=== PATIENT | female | born 1985 | race Caucasian/White ===

== ENCOUNTER 2025-03-04 18:16 | Emergency (ER) | payer MEDICAID ==
[~2025-03-04] VITALS: Ht 172.7 cm; Wt 63.5 kg
[2025-03-04 19:17] LABS: BASOPHILS % (AUTO) 0.3 % (0.0-2.0); EOSINOPHILS # (AUTO) 0.5 K/uL (0.0-0.7); EOSINOPHILS % (AUTO) 4.7 % (0.0-7.0); HEMATOCRIT 34.5 % (31.2-41.9); HEMOGLOBIN 11.9 g/dL (10.9-14.3); LYMPHOCYTES # (AUTO) 2.5 K/uL (0.8-4.8); LYMPHOCYTES % (AUTO) 26.6 % (20.5-51.5); MEAN CORPUSCULAR HEMOGLOBIN 32.7 uug (24.7-32.8); MEAN CORPUSCULAR HGB CONC 34 g/dL (32.3-35.6); MONOCYTES # (AUTO) 0.6 K/uL (0.1-1.30); MONOCYTES % (AUTO) 6.6 % (0.0-11.0); NEUTROPHILS # (AUTO) 5.9 K/uL (1.8-8.9); NEUTROPHILS % (AUTO) 61.8 % (38.5-71.5); PLATELET COUNT (AUTO) 300 K/uL (179-408); RED BLOOD CELL COUNT(AUTO) 3.63 MIL/uL (3.63-4.92); RED CELL DISTRIBUTION WIDTH 13.8 % (12.3-17.7); WHITE BLOOD COUNT (AUTO) 9.5 K/uL (3.8-11.8)
[2025-03-04] MEDS ORDERED: ALBUTEROL SULFATE 2.5 MG/3 ML NEBU ONE (19:17)
[2025-03-04] MEDS ORDERED: IPRATROPIUM BROMIDE 0.5 MG/2.5 ML NEBU ONE (19:18)
[2025-03-04 19:20] VITALS: O2SAT 98
[2025-03-04] MEDS: IPRATROPIUM BROMIDE 0.5 MG/2.5 ML NEBU NEB ONE (19:31)
[2025-03-04 19:32] VITALS: O2SAT 99
[2025-03-04] MEDS ORDERED: CEFTRIAXONE /D5W 50ML IVPB **ER PYXIS IV ONE (19:32)
[2025-03-04] MEDS: ALBUTEROL SULFATE 2.5 MG/3 ML NEBU NEB ONE (19:32)
[2025-03-04] MEDS: CEFTRIAXONE 2 G in IV DEXTROSE 5% 100 ML IV ONE (19:40)
[2025-03-04 19:44] LABS: DIFFERENTIAL COMMENT 1
[2025-03-04 19:49] LABS: CALCIUM 9.5 mg/dL (8.5-10.1); CREATININE 0.9 mg/dL (0.6-1.3); POTASSIUM 3.7 mmol/L (3.5-5.1)
[2025-03-04 20:04] LABS: ALBUMIN 3.8 g/dL (3.4-5.0); BILIRUBIN,DIRECT 0.2 mg/dL (0.0-0.2); BILIRUBIN,TOTAL 0.4 mg/dL (0.2-1.0); TOTAL PROTEIN, SERUM 7.8 g/dL (6.4-8.2)
[2025-03-04] MEDS: IV NORMAL SALINE 500 ML BAG IV ONE (20:39)
[2025-03-04] MEDS ORDERED: DOXY-226 PO (20:50)
[2025-03-04 21:17] VITALS: BP 128/80; O2SAT 99
== END 2025-03-04 21:14 | disposition home or self-care (01) ==
LOC: ER 18:37 → EDBD 18:37 → ER 21:14
DX: M21.332 Wrist drop, left wrist (principal); J45.901 Unspecified asthma with (acute) exacerbation; R53.1 Weakness
CPT/HCPCS: 36415; 83605; 85025; 85651; 86140; 87040; A4606; A4663; J0696; J3590; J7040